=== PATIENT | male | born 1950 | race Caucasian/White ===

== ENCOUNTER → 2019-04-06 07:25 | Outpatient (CLI) | payer OTHER, SELFPAY ==
[2019-04-06 07:58] LABS: Add Manual Diff / Slide Review NO; Basophils Absolute Auto 100 /uL (0-100); Basophils Percent Auto 1.2 % (0-2); Eosinophils Absolute Auto 200 /uL (0-450); Eosinophils Percent Auto 3.6 % (2-4); Hematocrit 40.6 % (41-53); Hemoglobin 13.8 g/dL (13.5-17.5); Lymphocytes Absolute Auto 1500 /uL (1100-4500); Lymphocytes Percent Auto 28.7 % (25-40); Mean Corpuscular HGB Conc 33.9 % (30-36); Mean Corpuscular Hemoglobin 30.2 PG (26-34); Monocytes Absolute Auto 500 /uL (0-900); Monocytes Percent Auto 9.5 % (3-14); Neutrophils Absolute Auto 3000 /uL (1500-7000); Platelet Count 191 X10^3/uL (150-400); Red Blood Cell Count 4.56 X10^6/uL (4.5-5.9); Red Cell Distribution Width 13.4 % (11.6-14.8); White Blood Cell Count 5.2 X10^3/uL (4.5-11.0)
[2019-04-06 08:18] LABS: Alanine Aminotransferase 34 IU/L (<50); Albumin 4.5 g/dL (3.5-5.0); Albumin Globulin Ratio 1.8 (1.0-2.8); Alkaline Phosphatase 56 U/L (38-126); Aspartate Aminotransferase 46 IU/L (17-59); BUN Creatinine Ratio 13.6 (6-22); Bilirubin Total 0.5 mg/dL (0.2-1.3); Blood Urea Nitrogen 15 mg/dL (9-20); Calcium 9.7 mg/dL (8.4-10.2); Carbon Dioxide 27 mmol/L (22-32); Chloride 104 mmol/L (98-107); Cholesterol 144 mg/dL (140-199); Estimated Glomerular Filt Rate > 60.0 mL/min (>60); Globulin 2.5 g/dL (1.7-4.1); Glucose 109 mg/dL (80-110); HDL Cholesterol 41 mg/dL (40-60); HEMOLYSIS < 15 (0-50); LDL Cholesterol Calculated 74 mg/dL (<100); Potassium 4.4 mmol/L (3.4-5.1); Sodium 141 mmol/L (137-145); Triglycerides 146 mg/dL (35-150)
== END ==
PROVIDERS: PCP Internal Medicine; Visit Provider Internal Medicine
DX: E78.2 Mixed hyperlipidemia (principal); N40.1 Benign prostatic hyperplasia with lower urinary tract symptoms; I10 Essential (primary) hypertension; E66.9 Obesity, unspecified
CPT/HCPCS: 36415; 80053; 80061; 85025

== ENCOUNTER → 2019-07-17 07:54 | Outpatient (CLI) | payer OTHER, SELFPAY ==
--- NOTE | 2019-07-17 | DI.US.S_ITS ---
PROCEDURE: US ABD AORTA ANEURYSM SCREEN INDICATIONS: SCREENING FOR CARDIOVASCULAR DISORDER TECHNIQUE: Real time scanning was performed of the aorta and iliac arteries, with image documentation. COMPARISON: None. FINDINGS: Aorta: Proximal aortic diameter measures 2.2 cm. Mid-aorta measures 2.5 cm. Distal aortic diameter is 1.8 cm. Iliac arteries: Right common iliac artery measures 1.4 cm. Left common iliac artery measures 1.4 cm. IMPRESSION: Normal screening study, no aneurysm found. Dictated by: Kurt Lynn M.D. on 07/17/2019 at 15:24 Approved by: Kurt Lynn M.D. on 07/17/2019 at 15:25
== END ==
PROVIDERS: PCP Internal Medicine; Referring Provider Internal Medicine; Visit Provider Internal Medicine
DX: Z13.6 Encounter for screening for cardiovascular disorders (principal)
CPT/HCPCS: 76706

== ENCOUNTER → 2019-10-21 11:42 | Outpatient (CLI) | payer OTHER, SELFPAY ==
[2019-10-21 12:32] LABS: Add Manual Diff / Slide Review NO; Basophils Absolute Auto 0 /uL (0-100); Basophils Percent Auto 0.7 % (0-2); Eosinophils Absolute Auto 100 /uL (0-450); Eosinophils Percent Auto 2.4 % (2-4); Hematocrit 40.4 % (41-53); Hemoglobin 14.1 g/dL (13.5-17.5); Lymphocytes Absolute Auto 1300 /uL (1100-4500); Mean Corpuscular HGB Conc 34.9 % (30-36); Mean Corpuscular Hemoglobin 30.8 PG (26-34); Mean Corpuscular Volume 88.1 fL (80-100); Monocytes Absolute Auto 400 /uL (0-900); Monocytes Percent Auto 8.7 % (3-14); Neutrophils Absolute Auto 3100 /uL (1500-7000); Neutrophils Percent Auto 62.2 % (50-75); Platelet Count 189 X10^3/uL (150-400); Red Blood Cell Count 4.58 X10^6/uL (4.5-5.9); Red Cell Distribution Width 13.6 % (11.6-14.8)
== END ==
PROVIDERS: PCP Internal Medicine; Referring Provider Internal Medicine; Visit Provider Internal Medicine
DX: D64.9 Anemia, unspecified (principal)
CPT/HCPCS: 36415; 85025

== ENCOUNTER 2019-11-05 09:50 | Emergency (ER) | payer OTHER, SELFPAY ==
--- NOTE | 2019-11-05 09:53 | DI.RAD.S_ITS ---
PROCEDURE: XR ANKLE RT MIN 3V INDICATIONS: pain, twisted ankle. TECHNIQUE: 3 views of the ankle were acquired. COMPARISON: None. FINDINGS: Bones: Oblique fracture of the distal fibula which is nondisplaced. Fracture is above the tibiotalar joint (Alaniz C). Ankle mortise is normally aligned. No suspicious bony lesions. Dorsal and plantar calcaneal bone spurs. Soft tissues: No tibiotalar joint effusion. Achilles tendon appears normal. IMPRESSION: Distal fibula fracture. Dictated by: Lana Contreras MD, PhD on 11/05/2019 at 10:36 Approved by: Lana Contreras MD, PhD on 11/05/2019 at 10:42
[2019-11-05 10:07] VITALS: BP 142/80; PULSE 56; RESP 14; TEMP 36.7; O2SAT 96
[2019-11-05 10:45] VITALS: PULSE 57; O2SAT 96
--- NOTE | 2019-11-05 10:57 | ED.LOWEXIN ---
HPI - Extremity Injury (Lower) <Jessie Hall PA-C - Last Filed: 11/05/19 13:52> General Chief Complaint: Extremity Injury, Lower Stated Complaint: Think he broke his right leg Time Seen by Provider: 11/05/19 10:56 Source: patient Mode of arrival: Wheelchair Limitations: no limitations History of Present Illness HPI Narrative: This is a 69-year-old gentleman who presents to the emergency department complaining of right lower leg pain and numbness in his right foot. He states that this morning around 8:00 a.m. he was walking on his lawn in a muddy area and he had a mechanical fall because his foot ?supinated which has a tendency to do and he says ?my foot slipped inward and I just kept going all the way down?. He says he felt a pop and was not able to walk afterwards his had to get him into the house with him hopping on 1 leg. He is a resident of [facility] and called his PCP and insurance and was advised to come to the emergency department, so they took the [place] over. He has not had anything for pain since this happened this morning, he states that other than not being able to walk and bear weight on the foot because it ?does not feel stable and his only other symptoms are some numbness in his right foot and some muscle spasms in his lower leg. He denies hitting his head, neck pain, any other injury, prodrome of dizziness as lightheadedness or palpitations prior to his fall, this is an isolated injury and has no other complaints today. He states he has never had surgery on his right lower extremity and he has never broken a bone in his right lower extremity. MD complaint: leg injury, ankle injury and fall Onset (ago): hour(s) (3) Injury: Right: ankle Type of Injury: inversion Place: home Severity: moderate Severity scale (1-10): 4 Relieving factors: nothing Exacerbating factors: weight bearing, movement and palpation Context: fall Associated symptoms: snap/pop sensation, numbness, tingling and unable to bear weight Other symptoms: none Related Data Previous Rx's Medication Instructions Recorded zolpidem 5 mg tablet 5 mg PO BEDTIME PRN #30 tab 09/24/19 oxycodone-acetaminophen [Percocet] 1 tab PO Q6H PRN #20 tab MDD 4 tabs 11/05/19 Allergies Allergy/AdvReac Type Severity Reaction Status Date / Time No Known Drug Allergies Allergy Verified 11/05/19 09:52 Review of Systems <Jessie Hall PA-C - Last Filed: 11/05/19 13:52> Review of Systems Narrative: GENERAL: Denies chills, fatigue, malaise, fever, sweats. HEENT: Denies sinus pain, ear pain, sore throat, difficulty swallowing, dizziness. RESPIRATORY: Denies dyspnea, cough, wheezing, hemoptysis, sputum. CARDIOVASCULAR: Denies chest pain, palpitations, orthopnea, edema, GASTROINTESTINAL: Denies nausea, vomiting, abdominal pain, diarrhea, constipation, melena. : Denies dysuria, frequency, incontinence, hematuria, urinary retention. MUSCULOSKELETAL: Endorses pain in his right lower extremity just above his ankle on the outside, endorses muscle spasms of his right lower extremity laterally, endorses inability to bear weight on the right, denies weakness, joint pain, or bony pain SKIN: Denies rash, skin lesions, or other NEUROLOGIC: Denies weakness, headache, positive for numbness in the right foot numbness, negative for change in speech, confusion, seizures, incoordination. PSYCHIATRIC: No concerning psychosocial issues. 12 point review of systems is negative except for those stated above Patient History <Jessie Hall PA-C - Last Filed: 11/05/19 13:52> Social History Smoking Status: Former smoker alcohol intake: never caffeine: Yes Smoking Status: Former smoker Exam <Jessie Hall PA-C - Last Filed: 11/05/19 13:52> Narrative Exam Narrative: GENERAL: 69 year old patient appears stated age. Well-nourished, well-developed patient, in mild distress. HEAD: Atraumatic. Normocephalic. EYES: Pupils equal round and reactive. Extraocular motions intact. No scleral icterus. No injection or drainage. ENT: Nose without bleeding, purulent drainage. Throat without erythema, tonsillar hypertrophy or exudate. Airway patent. NECK: Trachea midline. Non tender CARDIOVASCULAR: Regular rate and rhythm without murmurs, gallops, or rubs. RESPIRATORY: Clear to auscultation. Breath sounds equal bilaterally. No wheezes, rales, or rhonchi. GASTROINTESTINAL: Abdomen soft, non-tender, nondistended. EXTREMITIES: There is tenderness of the lateral malleolus, there is no tenderness of the medial malleolus. There is tenderness and swelling with some mild deformity visible on the lateral ankle just proximal to the distal fibula, sensation is intact on the affected right foot and lower leg, pulses are strong and equal bilaterally dorsalis pedis and posterior tibialis, capillary refill is less than 2 seconds on the affected extremity skin color is pink, equal bilaterally in both lower extremities. ROM of toes is intact, dorsiflexion and plantar flexion at the ankle are reduced 2nd to pain. No other edema or joint tenderness. BACK: Nontender without deformity or crepitance. No flank tenderness. NEURO: AOx3. SKIN: No rash or erythema of visible areas Initial Vital Signs Initial Vital Signs: Vital Signs Temperature 98.0 F 11/05/19 10:07 Pulse Rate 56 L 11/05/19 10:07 Respiratory Rate 14 11/05/19 10:07 Blood Pressure 142/80 H 11/05/19 10:07 Pulse Oximetry 96 11/05/19 10:07 <Peace Cartwright DO - Last Filed: 11/10/19 07:41> Initial Vital Signs Initial Vital Signs: Vital Signs Temperature 98.0 F 11/05/19 10:07 Pulse Rate 56 L 11/05/19 10:07 Respiratory Rate 14 11/05/19 10:07 Blood Pressure 142/80 H 11/05/19 10:07 Pulse Oximetry 96 11/05/19 10:07 Course <Jessie Hall PA-C - Last Filed: 11/05/19 13:52> Course Course Narrative: Initial x-ray orderred in triage was of ankle which did show a distal fibula fracture, additional x-ray (tib/fib) obtained to assess for proximal fibula and/or tibia injury. Ortho consulted. 11:[address] Elizalde who advises follow-up in clinic early next week sugar-tong splint today in the emergency department, and pain medicine. 12:11 Orders Ordered: Discontinued Medications Acetaminophen (Tylenol) 975 mg PO NOW ONE Stop: 11/05/19 11:13 Last Admin: 11/05/19 11:20 Dose: 975 mg Documented by: SCANAPO Ibuprofen (Advil) 400 mg PO NOW ONE Stop: 11/05/19 11:13 Last Admin: 11/05/19 11:20 Dose: 400 mg Documented by: SCANAPO Vital Signs Vital signs: Vital Signs - 8 hr 11/05/19 10:07 11/05/19 10:45 11/05/19 11:00 Temperature 98.0 F Pulse Rate 56 L 57 L 55 L Respiratory Rate 14 Blood Pressure 142/80 H 136/76 Pulse Oximetry 96 96 95 <Peace Cartwright DO - Last Filed: 11/10/19 07:41> Orders Ordered: Discontinued Medications Acetaminophen (Tylenol) 975 mg PO NOW ONE Stop: 11/05/19 11:13 Last Admin: 11/05/19 11:20 Dose: 975 mg Documented by: SCANAPO Ibuprofen (Advil) 400 mg PO NOW ONE Stop: 11/05/19 11:13 Last Admin: 11/05/19 11:20 Dose: 400 mg Documented by: SCANAPVicky Vital Signs Vital signs: Vital Signs - 8 hr 11/05/19 10:07 11/05/19 10:45 11/05/19 11:00 Temperature 98.0 F Pulse Rate 56 L 57 L 55 L Respiratory Rate 14 Blood Pressure 142/80 H 136/76 Pulse Oximetry 96 96 95 MDM - Extremity Injury (Lower) <Jessie Hall PA-C - Last Filed: 11/05/19 13:52> Differential Diagnosis Differential diagnosis: Likely ankle sprain and strain, ankle fracture and other (fibula fracture) Medical Records Attestation: I reviewed the patient's medical records. Imaging Data Extremity x-ray #1: Attestation: I personally reviewed and interpreted this imaging study as follows: Radiologist's Impression: [address] [address] XRay Report Signed Patient: Jose Villafuerte [facility]#: [id number] : 1950Acct:[id number] Age/Sex: 69 / MDate of Service: 11/05/19 Loc: ED Accession Number: [id number] Procedure: XR ankle RT min 3V Ordering Provider: Peace Cartwright D.O. PROCEDURE: XR ANKLE RT MIN 3V INDICATIONS: pain, twisted ankle. TECHNIQUE: 3 views of the ankle were acquired. COMPARISON: None. FINDINGS: Bones: Oblique fracture of the distal fibula which is nondisplaced. Fracture is above the tibiotalar joint (Alaniz C). Ankle mortise is normally aligned. No suspicious bony lesions. Dorsal and plantar calcaneal bone spurs. Soft tissues: No tibiotalar joint effusion. Achilles tendon appears normal. IMPRESSION: Distal fibula fracture. Dictated by: Lana Contreras MD, PhD on 11/05/2019 at 10:36 Approved by: Lana Contreras MD, PhD on 11/05/2019 at 10:42 Extremity x-ray #2: Attestation: I personally reviewed and interpreted this imaging study as follows: Radiologist's Impression: [address] [address] XRay Report Signed Patient: Jose Villafuerte [facility]#: [id number] : 1950Acct:[id number] Age/Sex: 69 / MDate of Service: 11/05/19 Loc: ED Accession Number: [id number] Procedure: XR tibia fibula RT 2V Ordering Provider: Jessie Hall P.A-C PROCEDURE: XR TIBIA FUBULA RT 2V INDICATIONS: distal fibula fracture assess for proximal injury TECHNIQUE: 2 views of the tibia and fibula were acquired. COMPARISON: [facility], CR, XR ANKLE RT MIN 3V, 11/05/2019, 9:55. FINDINGS: Evaluation of the tibia and fibula is limited on this study as the distal portions of these bones have not been included. However, they were included on the exam of the ankle from 11/05/19 at 0955 hours. There is a fracture involving the distal fibula. No additional fractures are identified. No suspicious osseous lesions are present. Overlying clothing material results in suboptimal violation of the leg on the lateral view. Overlying soft tissues are otherwise unremarkable. No radiopaque foreign bodies are evident. IMPRESSION: Distal fibula fracture. No additional fractures. Dictated by: Tone Stout M.D. on 11/05/2019 at 10:31 Approved by: Tone Stout M.D. on 11/05/2019 at 10:34 [facility] Narrative Medical decision making narrative: This is a 69-year-old gentleman with no significant medical history who presents to the emergency department complaining of right lower leg pain after sustaining a fall and hearing a pop today while he was outside walking on uneven ground on his lawn. Differential diagnoses considered include sprain, strain, fracture, vascular injury, nerve injury, compartment syndrome No concern for compartment syndrome based on exam, history and location of injury. X-rays of ankle and tibia/fibula fibula revealed a distal nondisplaced fibula fracture above the tibiotalar joint, without other apparent injury. After consulting with ortho the patient was splinted with a sugar-tong splint, provided with education and crutches and advised to follow-up with orthopedics early next week. He was also provided a prescription for opioid pain medicine for the next 3 days and advised to minimize weight-bearing. Emergency return precautions provided, all questions were answered. Discharge Plan Departure Patient Disposition: Home Clinical Impression: Closed fibular fracture Qualifiers: Encounter type: initial encounter Fibula location: shaft Fracture morphology: oblique Fracture alignment: nondisplaced Laterality: right Qualified Code(s): S82.434A - Nondisplaced oblique fracture of shaft of right fibula, initial encounter for closed fracture Acute ankle pain Qualifiers: Laterality: right Qualified Code(s): M25.571 - Pain in right ankle and joints of right foot Discharge Date/Time: 11/05/19 12:48 Instructions: DI for Fracture, How To Perform RICE (Rest, Ice, Compress, Elevate) Activity Restrictions/Additional Instructions: Thank you for allowing us to be part of your care in the emergency department today. There is no evidence of an emergent or life threatening illness at this time, but follow up with your doctor in 1-2 days is recommended nonetheless to continue to rule out serious underlying causes of your symptoms. Please call the office for an appointment. Please return to the Emergency Department for any worsening or persistent symptoms. Please take medications as directed. You have a fracture towards the end of the shaft of your fibula which is the bone on the outside of your leg. The orthopedic surgeon recommended seeing her in clinic early next week as an outpatient and her information is included in your paperwork I recommend calling today or tomorrow to set up an appointment and ensure you are on the books. You can take Tylenol and ibuprofen as needed for pain, however I am also giving you a prescription for stronger pain medicine (percocet) which you may need to take for the next few days depending on how much pain you are in. We provided you with a splint and crutches and you should not bear weight on this foot. If you experience increasing or worsening symptoms discoloration of your foot or leg or severe worsening pain please seek medical care immediately. Prescriptions: New oxycodone-acetaminophen [Percocet] 5-325 mg tablet 1 tab PO Q6H MDD 4 tabs PRN (Reason: pain) Qty: 20 RF: 0 No Action zolpidem [Ambien] 5 mg tablet 5 mg PO BEDTIME PRN (Reason: insomnia) Qty: 30 RF: 0 Referrals: Chelsea Elizalde MD [Physician] - Jacob Gao MD [Primary Care Provider] - <Peace Cartwright DO - Last Filed: 11/10/19 07:41> [facility] ED Attending Kirillature Attestation: I was immediately available in the department for consultation. Documentation has been reviewed. I agree with assessment and plan.
[2019-11-05 11:00] VITALS: BP 136/76; PULSE 55; O2SAT 95
--- NOTE | 2019-11-05 11:12 | DI.RAD.S_ITS ---
PROCEDURE: XR TIBIA FUBULA RT 2V INDICATIONS: distal fibula fracture assess for proximal injury TECHNIQUE: 2 views of the tibia and fibula were acquired. COMPARISON: [facility], CR, XR ANKLE RT MIN 3V, 11/05/2019, 9:55. FINDINGS: Evaluation of the tibia and fibula is limited on this study as the distal portions of these bones have not been included. However, they were included on the exam of the ankle from 11/05/19 at 0955 hours. There is a fracture involving the distal fibula. No additional fractures are identified. No suspicious osseous lesions are present. Overlying clothing material results in suboptimal violation of the leg on the lateral view. Overlying soft tissues are otherwise unremarkable. No radiopaque foreign bodies are evident. IMPRESSION: Distal fibula fracture. No additional fractures. Dictated by: Tone Stout M.D. on 11/05/2019 at 10:31 Approved by: Tone Stout M.D. on 11/05/2019 at 10:34
[2019-11-05] MEDS: ACETAMINOPHEN 325 MG TABLET 975 MG PO (11:20)
[2019-11-05] MEDS: IBUPROFEN 400 MG TABLET PO (11:20)
== END 2019-11-05 12:48 | disposition home or self-care (01) ==
PROVIDERS: Emergency Provider Student in an Organized Health Care Education/Training Program; PCP Internal Medicine
DX: S82.434A Nondisplaced oblique fracture of shaft of right fibula, initial encounter for closed fracture (principal); M25.571 Pain in right ankle and joints of right foot; W19.XXXA Unspecified fall, initial encounter
CPT/HCPCS: 29125; 73590; 73610; 99283

== ENCOUNTER → 2020-04-20 06:57 | Outpatient (CLI) | payer OTHER, SELFPAY ==
[2020-04-20 08:21] LABS: Alanine Aminotransferase 30 IU/L (<50); Albumin 4.1 g/dL (3.5-5.0); Albumin Globulin Ratio 1.5 (1.0-2.8); Alkaline Phosphatase 70 U/L (38-126); Aspartate Aminotransferase 42 IU/L (17-59); BUN Creatinine Ratio 19.5 (6-22); Bilirubin Total 0.4 mg/dL (0.2-1.3); Blood Urea Nitrogen 16 mg/dL (9-20); Carbon Dioxide 26 mmol/L (22-32); Chloride 104 mmol/L (98-107); Cholesterol 121 mg/dL (140-199); Estimated Glomerular Filt Rate > 60.0 mL/min (>60); Globulin 2.7 g/dL (1.7-4.1); Glucose 99 mg/dL (80-110); HDL Cholesterol 31 mg/dL (40-60); HEMOLYSIS < 15 (0-50); LDL Cholesterol Calculated 67 mg/dL (<100); Potassium 3.9 mmol/L (3.4-5.1); Sodium 137 mmol/L (137-145); Total Protein 6.8 g/dL (6.3-8.2); Triglycerides 117 mg/dL (35-150)
[2020-04-20 08:30] LABS: Add Manual Diff / Slide Review NO; Basophils Absolute Auto 0 /uL (0-100); Basophils Percent Auto 0.8 % (0-2); Eosinophils Absolute Auto 200 /uL (0-450); Eosinophils Percent Auto 3.8 % (2-4); Hematocrit 39.7 % (41-53); Hemoglobin 13.4 g/dL (13.5-17.5); Lymphocytes Absolute Auto 1500 /uL (1100-4500); Mean Corpuscular HGB Conc 33.7 % (30-36); Mean Corpuscular Volume 88.8 fL (80-100); Monocytes Absolute Auto 500 /uL (0-900); Monocytes Percent Auto 9.4 % (3-14); Neutrophils Absolute Auto 3100 /uL (1500-7000); Platelet Count 171 X10^3/uL (150-400); Red Blood Cell Count 4.47 X10^6/uL (4.5-5.9); Red Cell Distribution Width 13.1 % (11.6-14.8); White Blood Cell Count 5.3 X10^3/uL (4.5-11.0)
== END ==
PROVIDERS: PCP Internal Medicine; Referring Provider Internal Medicine; Visit Provider Internal Medicine
DX: N40.1 Benign prostatic hyperplasia with lower urinary tract symptoms (principal); I10 Essential (primary) hypertension; E78.2 Mixed hyperlipidemia; E64.9 Sequelae of unspecified nutritional deficiency
CPT/HCPCS: 36415; 80053; 80061; 84153; 84154; 85025

== ENCOUNTER → 2020-06-01 09:30 | Outpatient (CLI) | payer OTHER, SELFPAY ==
[2020-06-01 10:43] LABS: COVID19 -Nasal RAPID Negative (Negative)
== END ==
PROVIDERS: PCP Internal Medicine; Visit Provider Surgery
DX: Z01.812 Encounter for preprocedural laboratory examination (principal); Z20.822 Contact with and (suspected) exposure to COVID-19
CPT/HCPCS: 87635; C9803

== ENCOUNTER 2020-06-02 11:45 | Day surgery (SDC) | payer OTHER, SELFPAY ==
[2020-06-02 12:52] VITALS: BP 141/76; PULSE 63; RESP 17; TEMP 35.9; O2SAT 98; BMI 29.4
[2020-06-02] MEDS: LACTATED RINGERS 1,000 ML 200 ML IV (13:08)
--- NOTE | 2020-06-02 14:07 | PM.HP.1 ---
History of Present Illness History of Present Illness Date Patient Seen: 06/02/20 Time Patient Seen: 14:08 Chief complaint: SCREENING COLONOSCOPY Narrative: The patient presents for colorectal sreening. He has had multiple prior colonoscopies most recently 3 years ago which was significant for numerous polyps. No personal or family history of colon cancer. On further history denies any recent gastrointestinal symptoms. No nausea, vomiting, abdominal pain, loss of appetite, unexplained weight loss, change in bowel habits, diarrhea, constipation, melena, hematochezia, or bright red blood per rectum. Patient History Medical History Atopic dermatitis BPH (benign prostatic hyperplasia) Chronic low back pain Degenerative disc disease, lumbar History of deviated nasal septum Hyperlipidemia Hypertension Obesity (BMI 30-39.9) Obstructive sleep apnea syndrome Osteoarthritis Surgical History History of lumbar fusion Family & Social History Social History: household members spouse lives independently Yes caregiver/support person No Tobacco & Substance use: Smoking Status Former smoker alcohol intake never alcohol intake frequency holiday/special occasion Substance Use Type does not use Meds Home Medications and Allergies Home Medications Medication Instructions Recorded Confirmed Type aspirin 81 mg PO DAILY 06/02/20 06/02/20 History cholecalciferol (vitamin D3) 50 mcg PO DAILY 06/02/20 06/02/20 History [Vitamin D3] doxazosin 4 mg PO DAILY 06/02/20 06/02/20 History lisinopril-hydrochlorothiazide 1 tab PO DAILY 06/02/20 06/02/20 History pravastatin 20 mg PO DAILY 06/02/20 06/02/20 History sildenafil 50 mg PO DAILY PRN 06/02/20 06/02/20 History Allergies Allergy/AdvReac Type Severity Reaction Status Date / Time celecoxib Allergy Intermediate Rash Verified 06/02/20 12:43 lactose Allergy Intermediate Congested Verified 06/02/20 12:43 levofloxacin Allergy Intermediate Joint Pain Verified 06/02/20 12:44 Sulfa (Sulfonamide Allergy Mild Nausea Verified 06/02/20 12:45 Antibiotics) Review of Systems Review of Systems ROS: Yes All systems reviewed with the patient and are negative except as otherwise documented Exam Vital Signs (past 8 hours): - 06/02/20 12:52 Temperature 96.6 F L Pulse Rate 63 Respiratory Rate 17 Blood Pressure 141/76 H Pulse Oximetry 98 Oxygen Delivery Method Room Air Narrative Exam Narrative: General-no acute distress, well nourished HEENT-moist mucous membranes, no scleral icterus Neck-supple, no lymphadenopathy Chest- non labored respirations, clear to auscultation bilaterally Cardiac-regular rate no peripheral edema Abdomen-soft, nontender, non distended Extremities-warm, well perfused Neurological-alert and oriented, no focal deficits Assessment & Plan Assessment and plan (1) Personal history of colonic polyps: Status: Acute Assessment & Plan narrative: The patient requires colorectal screening and colonoscopy is recommended. Technical details were discussed. Risks, benefits, alternatives explained. Risks including but not limited to myocardial infarction, aspiration, bleeding, pain, missed lesion, incomplete examination, need for further radiographic studies, colonic perforation, and need for major abdominal surgery were discussed. All questions were answered to their satisfaction, and they are in agreement with this plan.
--- NOTE | 2020-06-02 14:42 | PM.OP.ENDO ---
Operative Date/Time/Diagnoses Date of procedure: 06/02/20 Time of procedure: 14:42 Pre-op diagnosis: personal history of colonic polyps Post-op diagnosis: same Procedure & Clinicians Study performed: colonoscopy Same procedure as scheduled: Yes Indications: 69M history of colonic polyps here for screening colonoscopy Surgeon: Dannie Lobato Procedure Notes Procedure in detail: Medications: Conscious sedation using 5 mg IV midazolam and 150mcg IV of fentanyl The history and physical was performed/updated and the patient is ASA class is 2. The procedure was discussed in detail with the patient. Potential risks complications including infection, bleeding, missed diagnosis, perforation, need for surgery, and were explained. Their questions were answered and informed consent was obtained. Patient was brought to the procedure room and placed standard monitoring equipment. The patient's vital signs were monitored continuously throughout the entire procedure. Prior to starting time-out was performed. The patient was placed in the left lateral recumbent position. Procedural sedation was administered. Examination began with a thorough inspection of the perianal area there was no evidence of fissures, fistulae, external hemorrhoids or cutaneous malignancy. The colonoscopy scope was then placed into the anal canal and was advanced to the cecum, which was identified by the ileocecal valve, the appendiceal orifice and the confluence of the taenia. The scope was then slowly withdrawn examining colon thoroughly in all directions, irrigating it of any residual stool. No masses or polyps Sigmoid diverticulosis The patient tolerated the procedure well. They will be discharged once criteria are met. The prep was of good/excellent quality. The withdrawl time was 10 minutes. The sedation time was 24 minutes. Findings: diverticulosis Specimen(s): none sent Complications: none Impression: Normal colonoscopy Post-procedure Recommendations: Colonscopy in 10 years Disposition: same day surgery
[2020-06-02] MEDS: fentaNYL 250 MCG/5 ML INJ IV (14:43)
[2020-06-02] MEDS: MIDAZOLAM 5 MG/5 ML VIAL IV (14:44)
[2020-06-02 14:46] VITALS: BP 129/79; PULSE 60; RESP 13; TEMP 36.2; O2SAT 97
[2020-06-02 14:51] VITALS: BP 118/75; PULSE 58; RESP 16; O2SAT 98
[2020-06-02 14:57] VITALS: BP 116/70; PULSE 65; RESP 12; O2SAT 99
[2020-06-02 15:01] VITALS: BP 109/70; PULSE 59; RESP 14; TEMP 36.2; O2SAT 98
== END 2020-06-02 15:18 | disposition home or self-care (01) ==
PROVIDERS: PCP Internal Medicine; Referring Provider Surgery; Visit Provider Surgery
PROC: 0DJD8ZZ Inspection of Lower Intestinal Tract, Via Natural or Artificial Opening Endoscopic (ICD-10-PCS; CPT 45378; principal; 2020-06-02 13:45)
DX: Z12.11 Encounter for screening for malignant neoplasm of colon (principal); Z86.010 Personal history of colon polyps; E78.5 Hyperlipidemia, unspecified; I10 Essential (primary) hypertension; E66.9 Obesity, unspecified; G47.33 Obstructive sleep apnea (adult) (pediatric); K57.30 Diverticulosis of large intestine without perforation or abscess without bleeding
CPT/HCPCS: G0105; 99152; J2250; J3010

== ENCOUNTER → 2022-02-14 15:44 | Outpatient (CLI) | payer OTHER, SELFPAY ==
--- NOTE | 2022-02-14 15:48 | DI.US.S_ITS ---
PROCEDURE: US ABD AORTA ANEURYSM SCREEN INDICATIONS: SCREEN TECHNIQUE: Real time scanning was performed of the aorta and iliac arteries, with image documentation. COMPARISON: [facility], , US ABD AORTA ANEURYSM SCREEN, 07/17/2019, 8:28. FINDINGS: Aorta: Proximal aortic diameter measures 2.6 cm. Mid-aorta measures 2.2 cm. Distal aortic diameter is 2.6 cm. Previous measurements on 07/17/2019 were 2.2 cm, 2.5 cm, and 1.8 cm, respectively. Iliac arteries: Right common iliac artery measures 1.5 cm. Left common iliac artery measures 1.6 cm. Previous measurements on 07/17/2019 were 1.4 cm and 1.4 cm. There is increased hepatic echogenicity. IMPRESSION: No abdominal aortic aneurysm, however the distal aorta is ectatic and has increased diameter compared to prior. Recommend follow-up ultrasound in 2 years. Dictated by: Allen Anand M.D. on 02/14/2022 at 17:01 Approved by: Allen Anand M.D. on 02/14/2022 at 17:04
== END ==
PROVIDERS: PCP Internal Medicine; Referring Provider Internal Medicine; Visit Provider Internal Medicine
DX: Z13.6 Encounter for screening for cardiovascular disorders (principal); I77.811 Abdominal aortic ectasia
CPT/HCPCS: 76706

== ENCOUNTER → 2022-12-11 14:14 | Outpatient (CLI) | payer OTHER, SELFPAY ==
--- NOTE | 2022-12-11 | DI.CT.S_ITS ---
PROCEDURE: CT SOFT TISSUE NECK W CON INDICATIONS: NECK MASS, NONPULSATILE TECHNIQUE: After the administration of intravenous contrast, 3.0 mm axial sections acquired from the sella to the aortic arch. Additional oblique axial 3.0 mm sections acquired through the pharynx. 3 mm thick coronal and sagittal reformats were generated. For radiation dose reduction, the following was used: automated exposure control. COMPARISON: None. FINDINGS: Image quality: Excellent. Lymph nodes: No enlarged lymph nodes seen throughout the neck. Vessels: Visualized vasculature appears patent. Neck spaces: The oropharynx, nasopharynx, and pharynx demonstrate no mucosal lesions. The vocal cords, false vocal cords, pyriform sinuses, epiglottis, vallecula, and tongue base all appear normal. Extramucosal spaces appear unremarkable. Glands: The area of clinical concern is marked overlying the left submandibular gland. The left similar gland demonstrates a normal appearance and is not significantly different from the contralateral right submandibular gland. No masses can be seen at the area of clinical concern. The parotid glands appear normal. Thyroid gland demonstrates no significant abnormality. Miscellaneous: Visualized brain and orbits appear normal. Lung apices appear clear. Superficial soft tissues appear normal. Bones: No suspicious bony lesions. Visualized sinuses and mastoids appear unremarkable. At least moderate cervical spine degenerative change can be seen. IMPRESSION: No masses can be seen at the area of clinical concern. The marked area of clinical concern can be seen adjacent to the normal left submandibular gland, which appears symmetric to the right submandibular gland. Please correlate with patient history and physical examination findings. Additional findings: At least moderate cervical spine degenerative change Dictated by: Harsha York M.D. on 12/11/2022 at 16:48 Approved by: Harsha York M.D. on 12/11/2022 at 16:50
== END ==
PROVIDERS: PCP Internal Medicine; Referring Provider Internal Medicine; Visit Provider Internal Medicine
DX: R22.1 Localized swelling, mass and lump, neck (principal); M47.812 Spondylosis without myelopathy or radiculopathy, cervical region
CPT/HCPCS: 70491; Q9967

== ENCOUNTER → 2024-01-10 11:21 | Outpatient (CLI) | payer OTHER, SELFPAY ==
--- NOTE | 2024-01-10 11:22 | DI.US.S_ITS ---
PROCEDURE: US ABD AORTA ANEURYSM SCREEN INDICATIONS: SCREENING TECHNIQUE: Real time scanning was performed of the aorta and iliac arteries, with image documentation. COMPARISON: [facility], , US ABD AORTA ANEURYSM SCREEN, 02/14/2022, 16:12. FINDINGS: Aorta: Proximal aortic diameter measures 2.6 cm. Mid-aorta measures 2.2 cm. Distal aortic diameter is 2.6 cm. [id number] atherosclerotic plaques of distal aorta. Iliac arteries: Right common iliac artery measures 1.4 cm. Left common iliac artery measures 1.4 cm. Incidental note of hepatic steatosis. Right peripelvic simple appearing cyst measuring 6.8 x 3.9 x 3.1 cm versus less likely hydronephrosis. 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 Recommend 5 year follow-up ultrasound. Right peripelvic simple appearing cyst measuring 6.8 cm versus less likely hydronephrosis. Hepatic steatosis. Dictated by: Cj Gallo M.D. on 01/10/2024 at 19:01 Approved by: Cj Gallo M.D. on 01/10/2024 at 19:04
== END ==
PROVIDERS: PCP Internal Medicine; Referring Provider Internal Medicine; Visit Provider Internal Medicine
DX: I77.89 Other specified disorders of arteries and arterioles (principal); N28.1 Cyst of kidney, acquired; K76.0 Fatty (change of) liver, not elsewhere classified
CPT/HCPCS: 76706